=== PATIENT | female | born 1975 | race Caucasian/White ===

== ENCOUNTER 2018-02-04 18:02 | Emergency (ER) | payer MEDICARE, MEDICAID ==
[~2018-02-04 18:02] MED LIST: CYCL-36 PO; DARV PO; EC-N500T7 PO; REST30CA PO
[2018-02-04 18:06] VITALS: BP 108/58; PULSE 105; RESP 20; TEMP 99.1; O2SAT 97
[2018-02-04] MEDS ORDERED: ONDANSETRON HCL 4 MG/2 ML VIAL IVP ONE (18:15)
[2018-02-04] MEDS ORDERED: SODIUM CHLORIDE 0.9% FLUSH 10 ML FLUSH IV FLUSH PRN (18:15)
[2018-02-04 18:24] VITALS: RESP 17; O2SAT 99
[2018-02-04] MEDS ORDERED: SERO400T PO (18:24)
[2018-02-04] MEDS ORDERED: NEUR600T PO (18:24)
[2018-02-04] MEDS ORDERED: CLON1TAB PO (18:24)
--- NOTE | 2018-02-04 18:25 | PD ---
HPI Chief Complaint: Flank/Kidney Pain Time Seen by Provider: 18:12 Travel History International Travel<30 days: No Contact w/Intl Traveler<30days: No Traveled to known affect area: No History of Present Illness HPI Patient comes in complaining of bilateral flank pain ongoing for 3 days. Patient states that she was seen 3 days ago in a different hospital diagnosed with kidney stone started on Cipro. Patient states 2 weeks ago she had a procedure done secondary to kidney stones by urologist in [place]. Patient reports taking her home medication Percocet with no improvement of symptoms. Patient reports morphine seems to help her pain better. Patient reports pain radiates around to her lower abdomen. Reports associated nausea and nonbloody vomiting. Reports temperature last night at home was 103 for which she took Tylenol last dose yesterday. Denies anything making symptoms worse. Reports urine is darker. Denies any loss/change in bowel, chest pain, shortness of breath, weakness, or numbness or tingling anywhere. PFSH Past Medical History Psychiatric: Yes Social History Tobacco Use: No Substance Use: No Allergies-Medications (Allergen,Severity, Reaction): Coded Allergies: penicillin G (Unverified Allergy, Severe, 05/19/17) Reported Meds & Prescriptions Reported Meds & Active Scripts Active Reported Percocet (Oxycodone-Acetaminophen) 7.5-325 mg Tab 1 Tab PO Q6H PRN Neurontin (Gabapentin) 600 Mg Tab 600 Mg PO BID Clonazepam 1 Mg Tab 1 Mg PO BID Seroquel (Quetiapine Fumarate) 400 Mg Tab 800 Mg PO HS Review of Systems Except as stated in HPI: all other systems reviewed are Neg Physical Exam Narrative GENERAL: Well-developed, overly nourished, in no acute distress, and non-ill appearing. SKIN: Focused skin assessment warm and dry. HEAD: Atraumatic. Normocephalic. EYES: Pupils equal and round. EOMI. No scleral icterus. No injection or drainage. ENT: No nasal bleeding or discharge. Mucous membranes pink and moist. NECK: Trachea midline. Supple. No nuclear rigidity. CARDIOVASCULAR: Regular rate and rhythm. No murmur appreciated. RESPIRATORY: No accessory muscle use. No respiratory distress. Clear to auscultation. Breath sounds equal bilaterally. GASTROINTESTINAL: Abdomen soft, nondistended, and no guarding. Hepatic and splenic margins not palpable. Normal bowel sounds x4. No pulsatile mass. Patient reports tenderness suprapubic area and bilateral flanks. MUSCULOSKELETAL: No obvious deformities. No clubbing. No cyanosis. No edema. Full range of motion. NEUROLOGICAL: Awake and alert. No obvious cranial nerve deficits. Motor grossly within normal limits. Normal speech. PSYCHIATRIC: Appropriate mood and affect; insight and judgment normal. Data Data Last Documented VS Vital Signs Date Time Temp Pulse Resp B/P (MAP) Pulse Ox O2 Delivery O2 Flow Rate FiO2 02/04/18 20:38 02/04/18 19:27 80 18 97 Room Air 02/04/18 18:06 99.1 Orders Orders Complete Blood Count With Diff (02/04/18 18:12) Comprehensive Metabolic Panel (02/04/18 18:12) Lipase (02/04/18 18:12) Prothrombin Time / Inr (Pt) (02/04/18 18:12) Act Partial Throm Time (Ptt) (02/04/18 18:12) Urinalysis - C+S If Indicated (02/04/18 18:12) Ct Abd/Pel W/O Iv Contrast (02/04/18 18:12) Iv Access Insert/Monitor (02/04/18 18:12) Ecg Monitoring (02/04/18 18:12) Oximetry (02/04/18 18:12) Ondansetron Inj (Zofran Inj) (02/04/18 18:15) Sodium Chloride 0.9% Flush (Ns Flush) (02/04/18 18:15) Urine Culture (02/04/18 18:20) Ed Discharge Order (02/04/18 20:33) Labs Laboratory Tests Test 02/04/18 18:20 White Blood Count 5.0 TH/MM3 Red Blood Count 3.83 MIL/MM3 Hemoglobin 10.8 GM/DL Hematocrit 32.5 % Mean Corpuscular Volume 84.8 FL Mean Corpuscular Hemoglobin 28.1 PG Mean Corpuscular Hemoglobin Concent 33.2 % Red Cell Distribution Width 15.1 % Platelet Count 161 TH/MM3 Mean Platelet Volume 10.4 FL Neutrophils (%) (Auto) 46.9 % Lymphocytes (%) (Auto) 41.0 % Monocytes (%) (Auto) 9.6 % Eosinophils (%) (Auto) 1.5 % Basophils (%) (Auto) 1.0 % Neutrophils # (Auto) 2.3 TH/MM3 Lymphocytes # (Auto) 2.0 TH/MM3 Monocytes # (Auto) 0.5 TH/MM3 Eosinophils # (Auto) 0.1 TH/MM3 Basophils # (Auto) 0.0 TH/MM3 CBC Comment DIFF FINAL Differential Comment Prothrombin Time 10.7 SEC Prothromb Time International Ratio 1.1 RATIO Activated Partial Thromboplast Time 24.0 SEC Urine Color RED Urine Turbidity CLOUDY Urine pH 6.0 Urine Specific [place] 1.021 Urine Protein 100 mg/dL Urine Glucose (UA) TRACE mg/dL Urine Ketones 10 mg/dL Urine Occult Blood MOD Urine Nitrite NEG Urine Bilirubin NEG Urine Urobilinogen 2.0 MG/DL Urine Leukocyte Esterase SMALL Urine RBC /hpf Urine WBC 158 /hpf Urine Squamous Epithelial Cells 9 /hpf Urine Mucus MOD /lpf Microscopic Urinalysis Comment CULTURE INDICATED Blood Urea Nitrogen 17 MG/DL Creatinine 0.92 MG/DL Random Glucose 103 MG/DL Total Protein 6.9 GM/DL Albumin 3.5 GM/DL Calcium Level 8.7 MG/DL Alkaline Phosphatase 117 U/L Aspartate Amino Transf (AST/SGOT) 33 U/L Alanine Aminotransferase (ALT/SGPT) 23 U/L Total Bilirubin 0.3 MG/DL Sodium Level 144 MEQ/L Potassium Level 3.9 MEQ/L Chloride Level 110 MEQ/L Carbon Dioxide Level 28.5 MEQ/L Anion Gap 6 MEQ/L Estimat Glomerular Filtration Rate 67 ML/MIN Lipase 73 U/L [facility] Medical Decision Making Medical Screen Exam Complete: Yes Emergency Medical Condition: Yes Interpretation(s) Last Impressions Abdomen/Pelvis CT 02/04/181811 Signed Impressions: Service Date/Time: February 19:18 - CONCLUSION: 1. No acute findings. Previous gastric bypass surgery and hysterectomy. Mild constipation. Jonathan Coulter MD Differential Diagnosis UTI, renal calculi, pyelonephritis, constipation, diverticulitis, colitis, ileus , obstruction Narrative Course The patient presented complaining of possible kidney stone. The patient otherwise appeared comfortable and hydrated. Evaluation revealed no clinical evidence of acute kidney stone, was found to have mild constipation. The patient is to return if worsens, pain worsens or changes, develop persistent fever, inability to tolerate fluids with or without vomiting, unable to establish follow up or as needed. There was no evidence of an acute, surgical abdomen at this time. There was no clinical evidence to support cholecystitis/ cholelithiasis, pancreatitis, perforation of gastric ulcer, colitis, diverticulitis, obstruction, volvulus, early appendicitis, or hernial incarceration or strangulation at this time. There was no evidence to support vascular pathology such as AAA, mesenteric ischemia, nor significant GIB. There was also no clinical evidence by history, exam or risk factors to suggest atypical presentation of cardiac disease such as ACS, AMI or atypical angina. The patient is upset she is not getting any narcotic medications, but otherwise agreed with plan of care and management. The patient was instructed to follow up with their physician and urologist. Patient in no obvious distress upon re-evaluation. All pertinent laboratory/ Radiology result(s) discussed with patient. Discussed patient with Dr. Keller prior discharge, who is in agreement plan of care and disposition. Any questions/concerns in reference to patient diagnosis/condition discussed and clarified prior to patient's discharge. Reinforced sheer importance of close follow up with patient's primary physician or primary care clinic. Instructed patient to return to ED immediately, if symptoms return/worsen. Patient showed understanding of above instructions. Further instructions and recommendations were detailed in discharge paperwork. Patient ambulated without difficulty out of ED at discharge. Diagnosis Primary Impression: Constipation Qualified Codes: K59.00 - Constipation, unspecified Additional Impression: Hematuria Qualified Codes: R31.9 - Hematuria, unspecified Patient Instructions: Acute Hematuria (DC), Constipation (ED), General Instructions Additional Instructions: Follow-up with your primary care physician and urologist in 1-3 days for reevaluation. Take your antibiotics as prescribed. Use [id number] laxatives and stool softeners and/or enemas as needed for symptomatic relief. Follow instructions on the packaging. Return to the emergency department if symptoms get worse. Disposition: 01 DISCHARGE HOME Condition: Stable Eliceo Elaine February 04, 2018 18:25
[2018-02-04] MEDS ORDERED: PERC7.5T13 PO (18:42)
[2018-02-04 18:58] LABS: AUTOMATED NEUTROPHIL # 2.3 TH/MM3 (1.8-7.7); EOSINOPHIL # 0.1 TH/MM3 (0-0.4); EOSINOPHIL % 1.5 % (0.0-4.0); HEMATOCRIT 32.5 % (35.0-46.0); HEMOGLOBIN 10.8 GM/DL (11.6-15.3); MEAN CELL VOLUME 84.8 FL (80.0-100.0); MEAN CORPUSCULAR HEMOGLOBIN 28.1 PG (27.0-34.0); MEAN CORPUSCULAR HGB CONC 33.2 % (32.0-36.0); MEAN PLATELET VOLUME 10.4 FL (7.0-11.0); MONO % 9.6 % (0.0-8.0); MONOCYTE # 0.5 TH/MM3 (0-0.9); NEUT % 46.9 % (16.0-70.0); PLATELET COUNT 161 TH/MM3 (150-450); RED BLOOD COUNT 3.83 MIL/MM3 (4.00-5.30); RED CELL DISTRIBUTION WIDTH 15.1 % (11.6-17.2)
[2018-02-04 19:10] LABS: INTERNATIONAL NORMALIZED RATIO 1.1 RATIO; PROTHROMBIN TIME - PATIENT 10.7 SEC (9.8-11.6)
[2018-02-04 19:13] LABS: BILIRUBIN, URINE NEG (NEG); BLOOD, URINE MOD (NEG); GLUCOSE,URINE TRACE mg/dL (NEG); KETONE, URINE 10 mg/dL (NEG); MUCUS URINE MOD /lpf (OCC); NITRITE,URINE NEG (NEG); SQUAMOUS EPITHELIAL CELL URINE 9 /hpf (0-5); URINE LEUKOCYTE ESTERASE SMALL (NEG)
[2018-02-04 19:14] LABS: URINE COLOR RED (YELLW/STRAW)
[2018-02-04 19:19] LABS: ALT (GPT) 23 U/L (10-53)
[2018-02-04 19:24] LABS: ALKALINE PHOSPHATASE 117 U/L (45-117); TOTAL BILIRUBIN ADULT 0.3 MG/DL (0.2-1.0); TOTAL PROTEIN 6.9 GM/DL (6.4-8.2)
[2018-02-04 19:26] LABS: ALBUMIN 3.5 GM/DL (3.4-5.0); AST (GOT) 33 U/L (15-37); BICARBONATE 28.5 MEQ/L (21.0-32.0); BLOOD UREA NITROGEN 17 MG/DL (7-18); CALCIUM 8.7 MG/DL (8.5-10.1); CHLORIDE 110 MEQ/L (98-107); CREATININE 0.92 MG/DL (0.50-1.00); GLOMERULAR FILTRATION RATE 67 ML/MIN (>89); GLUCOSE,RANDOM 103 MG/DL (74-106); SODIUM (NA) 144 MEQ/L (136-145)
[2018-02-04 19:27] VITALS: BP 115/63; PULSE 80; RESP 18; O2SAT 97
--- NOTE | 2018-02-04 19:46 | RADRPT ---
EXAM DATE/TIME: 02/04/2018 19:18 [facility] COMPARISON: No previous studies available for comparison. INDICATIONS : Bilateral flank pain and hematuria. ORAL CONTRAST: No oral contrast ingested. RADIATION DOSE: 7.06 CTDIvol (mGy) MEDICAL HISTORY : Renal calculi. SURGICAL HISTORY : Hysterectomy. Gastric bypass. ENCOUNTER: Initial ACUITY: 3 days PAIN SCALE: 10/10 LOCATION: Bilateral flank TECHNIQUE: Volumetric scanning of the abdomen and pelvis was performed. Using automated exposure control and ad justment of the mA and/or kV according to patient size, radiation dose was kept as low as reasonably achievable to obtain optimal diagnostic quality images. DICOM format image data is available electro nically for review and comparison. FINDINGS: No acute findings in the liver, spleen, adrenals, kidneys and pancreas. Previous gastric bypass surge ry and hysterectomy. Mild constipation. No hydronephrosis or evidence for obstructive uropathy. No re nal or bladder calculi. Multiple presumed injection granulomata in the gluteal region. CONCLUSION: 1. No acute findings. Previous gastric bypass surgery and hysterectomy. Mild constipation. Jonathan Coulter MD on February 04, 2018 at 19:40 Board Certified Radiologist. This report was verified electronically.
== END 2018-02-04 20:43 | disposition home or self-care (01) ==
LOC: NEPE 18:02
DX: K59.00 Constipation, unspecified (principal); R31.9 Hematuria, unspecified
CPT/HCPCS: 74176; 80053; 81001; 83690; 85025; 85610; 85730; 87086; 96374; 99284; J2405